=== PATIENT | male | born 2000 | race Hispanic/Latino ===

== ENCOUNTER 2022-10-26 18:44 | Emergency (ER) | payer SELFPAY ==
--- NOTE | 2022-10-26 19:08 | EDPHYS ---
Physician Documentation [facility] Name: Mary Austin Age: 22 yrs Sex: Male : 2000 Arrival Date: 10/26/2022 Time: 18:47 Bed IW2 Private MD: ED Physician Tato Swift HPI: 10/26 18:59 This 22 yrs old Male presents to ER via Unassigned with complaints of Puncture kb Wound To Foot - nail. 18:59 The patient presents with a puncture wound, from a nail. The complaints affect the left kb foot. Context: The problem was sustained outdoors, resulted from the patient stepping on a nail, while wearing shoes, the patient can fully bear weight, the patient is able to ambulate. Onset: The symptoms/episode began/occurred today. Modifying factors: The symptoms are alleviated by nothing, the symptoms are aggravated by nothing. Associated signs and symptoms: The patient has no apparent associated signs or symptoms. Severity of symptoms: At their worst the symptoms were mild, in the emergency department the symptoms are unchanged. The patient has not experienced similar symptoms in the past. The patient has not recently seen a physician. Pt reports he stepped on a nail and needs a tetanus shot. States the whole nail was removed from foot. Historical: - Allergies: 19:14 No Known Allergies; jh5 - PMHx: 19:14 None; [facility] - Immunization history:: Adult Immunizations up to date. - Social history:: Smoking status: Patient denies any tobacco usage or history of. ROS: 18:57 Constitutional: Negative for fever, chills, and weight loss. kb 18:57 Skin: Positive for puncture, of the arch of left foot. 18:57 All other systems are negative. Exam: 18:57 Constitutional: This is a well developed, well nourished patient who is awake, alert, kb and in no acute distress. Head/Face: Normocephalic, atraumatic. ENT: Moist Mucous membranes Cardiovascular: Regular rate and rhythm with a normal S1 and S2. No gallops, murmurs, or rubs. No pulse deficits. Respiratory: Respirations even and unlabored. No increased work of breathing. Talking in full sentences MS/ Extremity: Pulses equal, no cyanosis. Neurovascular intact. Full, normal range of motion. Neuro: Awake and alert, GCS 15, oriented to person, place, time, and situation. Moves all extremities. Normal gait. Psych: Awake, alert, with orientation to person, place and time. Behavior, mood, and affect are within normal limits. 18:57 Skin: injury, puncture(s), that are superficial, of the arch of left foot. Vital Signs: 19:12 BP 150 / 97; Pulse 79; Resp 18; Temp 98.6; Pulse Ox 99% ; Weight 90.72 kg; Height 5 ft. jh5 10 in. (177.80 cm); 19:12 Body Mass Index 28.70 (90.72 kg, 177.80 cm) jh5 MDM: 18:57 Patient medically screened. kb 18:57 Data reviewed: vital signs, nurses notes. Data interpreted: Pulse oximetry: on room air kb is 100 %. Interpretation: normal. Counseling: I had a detailed discussion with the patient and/or guardian regarding: the historical points, exam findings, and any diagnostic results supporting the discharge/admit diagnosis, the need for outpatient follow up, a family practitioner, to return to the emergency department if symptoms worsen or persist or if there are any questions or concerns that arise at home. 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 Exp: jh5 05/28/2023. Lot #: [id number]. } Route: IM; Site: left deltoid; Disposition: 19:07 Co-signature as Attending Physician, Tato ELIAS was immediately available onsite ms3 in the emergency department for consultation in the care of the patient. Disposition Summary: 10/26/22 19:08 Discharge Ordered Location: Home kb Condition: Stable kb Diagnosis - Puncture wound without foreign body of foot kb Followup: kb - With: Emergency Department - When: As needed - Reason: Worsening of condition Followup: kb - With: Private Physician - When: 2 - 3 days - Reason: Recheck today's complaints, Continuance of care, Re-evaluation by your physician Discharge Instructions: - Discharge Summary Sheet kb - Puncture Wound, [id number] kb Forms: - Medication Reconciliation Form kb - Thank You Letter kb - Antibiotic Education kb - Prescription Opioid Use kb Signatures: Lindsey Edwards FNP-C FNP-Tato Zimmer DO DO ms3 Ana Reina, RN RN jh5
[2022-10-26] MEDS ORDERED: TDAP (DIPHTH,PERTUSS(ACELL),TET VAC) 0.5 ML VIAL IMVAC ONE (19:18)
--- NOTE | 2022-10-26 19:22 | ER ---
Nurse's Notes [facility] Name: Mary Austin Age: 22 yrs Sex: Male : 2000 Arrival Date: 10/26/2022 Time: 18:47 Bed IW2 Private MD: Diagnosis: Puncture wound without foreign body of foot Presentation: 10/26 19:12 Chief complaint: Patient states: left foot, stepped on a nail. Coronavirus screen: [facility] Vaccine status: Patient reports receiving the 2nd dose of the covid vaccine. Client denies travel out of the [place] in the last 14 days. Ebola Screen: Patient negative for fever greater than or equal to 101.5 degrees Fahrenheit, and additional compatible Ebola Virus Disease symptoms Patient denies exposure to infectious person. Patient denies travel to an Ebola-affected area in the 21 days before illness onset. Initial Sepsis Screen: Does the patient meet any 2 criteria? No. Patient's initial sepsis screen is negative. Does the patient have a suspected source of infection? No. Patient's initial sepsis screen is negative. Risk Assessment: Do you want to hurt yourself or someone else? Patient reports no desire to harm self or others. 19:12 Method Of Arrival: Ambulatory [facility] 19:12 Acuity: MARU 4 [facility] Triage Assessment: 19:14 General: Appears in no apparent distress. Behavior is calm, cooperative, appropriate [facility] for age. Pain: Complains of pain in left foot. Historical: - Allergies: 19:14 No Known Allergies; [facility] - PMHx: 19:14 None; [facility] - Immunization history:: Adult Immunizations up to date. - Social history:: Smoking status: Patient denies any tobacco usage or history of. Vital Signs: 19:12 BP 150 / 97; Pulse 79; Resp 18; Temp 98.6; Pulse Ox 99% ; Weight 90.72 kg; Height 5 ft. [facility] 10 in. (177.80 cm); 19:12 Body Mass Index 28.70 (90.72 kg, 177.80 cm) [facility] ED Course: 18:47 Patient arrived in ED. as 18:49 Lindsey Edwards FNP-C [facility]. kb 18:49 Tato Swift DO is Attending Physician. kb 19:14 Triage completed. [facility] 19:14 Arm band placed on right wrist. 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 Exp: jh5 05/28/2023. Lot #: [id number]. } Route: IM; Site: left deltoid; Outcome: 19:08 Discharge ordered by . glen 19:22 Patient left the ED. jh5 Signatures: Lindsey Edwards, YOLANDA-C YOLANDA-Char Johnson Jessica, RN RN jh5
[2022-10-26 19:25] VITALS: BP 150/97; TEMP 98.6; O2SAT 99
== END 2022-10-26 19:22 | disposition home or self-care (01) ==
LOC: ER 18:44
DX: S91.332A Puncture wound without foreign body, left foot, initial encounter (principal); Z23 Encounter for immunization
CPT/HCPCS: 90471; 99282